=== PATIENT | female | born 1975 | race Caucasian/White ===

== ENCOUNTER 2024-01-29 00:46 | Emergency (ER) | payer MEDICAID ==
[~2024-01-29] VITALS: Ht 152.4 cm; Wt 71.0 kg
[2024-01-29 01:08] VITALS: BP 117/69; PULSE 62; RESP 16; TEMP 98.1; O2SAT 100
== END 2024-01-29 05:18 | disposition left against medical advice (07) ==
LOC: ER 00:46
DX: L29.9 Pruritus, unspecified (principal); Z53.21 Procedure and treatment not carried out due to patient leaving prior to being seen by health care provider